=== PATIENT | female | born 1935 | race Hispanic/Latino ===

== ENCOUNTER → 2019-12-06 10:42 | Outpatient (CLI) | payer MEDICARE, SELFPAY ==
--- NOTE | ~2019-12-06 | CT_ITS ---
EXAMINATION: CT abdomen pelvis wo con DATE: 12/06/2019 11:00 INDICATION: Weight loss, diverticulitis TECHNIQUE: Computed tomography (CT) of the abdomen and pelvis was performed without intravenous contr ast. The dose-length product (DLP) was 257.21 mGy-cm. Automated exposure control and iterative recons truction technique were employed. COMPARISON: None FINDINGS: There is a moderate-sized sliding hiatal hernia. Emphysema is seen in the visualized lung b ases. Cardiomegaly is noted. The liver, spleen, pancreas, gallbladder, and adrenal glands are normal. There is a 1.5 cm cyst of the right kidney. The left kidney is unremarkable. No pathologically enlar ged abdominal or pelvic lymph nodes are identified. There is no free intraperitoneal gas or evidence of bowel obstruction. Fluid in the gastric antrum gives the appearance of distended first portion of the duodenum. There is calcified atherosclerosis of the aorta and many of the other arteries. Colonic diverticulosis is present without evidence of diverticulitis. Calcified uterine fibroids are noted. There is severe lumbar spondylosis. IMPRESSION: 1. No CT correlate for the patient's symptoms. 2. Moderate-sized hiatal hernia. Reviewed, dictated and finalized at location B.
== END ==
PROVIDERS: Visit Provider Internal Medicine
DX: R63.4 Abnormal weight loss (principal); K57.32 Diverticulitis of large intestine without perforation or abscess without bleeding; K44.9 Diaphragmatic hernia without obstruction or gangrene
CPT/HCPCS: 74176